=== PATIENT | female | born 1980 | race Caucasian/White ===

== ENCOUNTER 2016-05-08 13:38 | Emergency (ER) | payer OTHER ==
[2016-05-08 13:44] VITALS: BP 110/65; TEMP 98.5; BMI 28.1
[2016-05-08] MEDS ORDERED: SODIUM CHLORIDE 1,000 ML IV STA (14:45)
[2016-05-08] MEDS ORDERED: morphine CARPU-JECT 2 MG/1 ML DISP.SYRIN IVPUSH ONE (14:45)
[2016-05-08] MEDS ORDERED: morphine CARPU-JECT 2 MG/1 ML DISP.SYRIN ONE (14:48)
[2016-05-08 15:05] LABS: BASOPHIL 0.4 % (0-2.0); EOSINOPHIL 1.9 % (0-4.5); MCH 32.4 pg (25.7-33.7); MCHC 34.1 g/dl (32.0-36.0); MEAN CELL VOLUME 95.1 fl (80-96); MEAN PLT VOLUME 9.8 fl (7.5-11.1); NEUTROPHILS 61.7 % (42.8-82.8); RDW 13.5 % (11.6-15.6); WHITE BLOOD COUNT 8.4 K/mm3 (4.0-10.0)
[2016-05-08 15:06] LABS: URINE APPEARANCE CLEAR; URINE BILIRUBIN NEGATIVE (NEGATIVE); URINE BLOOD NEGATIVE (NEGATIVE); URINE COLOR STRAW; URINE GLUCOSE (UA) NEGATIVE (NEGATIVE); URINE KETONE TRACE (NEGATIVE); URINE LEUK ESTERASE NEGATIVE (NEGATIVE); URINE NITRITE NEGATIVE (NEGATIVE); URINE PROTEIN NEGATIVE (NEGATIVE); URINE UROBILINOGEN NEGATIVE E.U./dl (0.2-1.0)
--- NOTE | 2016-05-08 15:21 | PDOC ---
History of Present Illness - General Chief Complaint: Pain Stated Complaint: PELVIC PAIN Time Seen by Provider: 05/08/16 14:11 History Source: Patient Exam Limitations: No Limitations - History of Present Illness Travel History: No Initial Comments: 05/08/16 15:15 35-year-old female presents to the ED with complaints of left suprapubic pain since Tuesday but worsening in severity since yesterday. Patient states had an elective done at 6 weeks at [facility] and had went there today for further evaluation and was sent here to rule out an ectopic versus PID since patient had unprotected coitus. patient denies vaginal discharge, vaginal bleeding, dysuria, diarrhea, fever or chills. Patient also denies nausea. Timing/Duration: reports: constant, getting worse Quality: reports: moderate, cramping Abdominal Pain Onset Location: reports: suprapubic (left) Activities at Onset: denies: none Aggravating Factors: worse with: None Alleviating Factors: worse with: None Past History - Past Medical History Allergies/Adverse Reactions: Allergies Allergy/AdvReac Type Severity Reaction Status Date / Time No Known Allergies Allergy Verified 05/08/16 13:41 Home Medications: Ambulatory Orders NK [No Known Home Medication] 07/06/13 Other medical history: none - Immunization History Immunization Up to Date: Yes - Psycho/Social/Smoking Cessation Hx Anxiety: No Suicidal Ideation: No Smoking History: Never smoked Have you smoked in the past 12 months: Yes Number of Cigarettes Smoked Daily: 1 Information on smoking cessation initiated: No 'Breaking Loose' booklet given: 07/05/13 Hx Alcohol Use: No Drug/Substance Use Hx: No Substance Use Type: None Patient Lives Alone: No Lives with/in: spouse/SO Review of Systems - Review of Systems Able to Perform ROS?: Yes Constitutional: No: Symptoms Reported HEENTM: No: Symptoms Reported Respiratory: No: Symptoms reported Cardiac (ROS): No: Symptoms Reported ABD/GI: Yes: Abdominal cramping : No: Symptoms Reported Musculoskeletal: No: Symptoms Reported Integumentary: No: Symptoms Reported Neurological: No: Symptoms reported Endocrine: No: Symptoms Reported Hematologic/Lymphatic: No: Symptoms Reported *Physical Exam - Vital Signs Last Vital Signs Temp Pulse Resp BP Pulse Ox 98.5 F 84 18 110/65 100 05/08/16 13:41 05/08/16 13:41 05/08/16 13:41 05/08/16 13:41 05/08/16 13:41 - Physical Exam General Appearance: Yes: Nourished, Appropriately Dressed. No: Apparent Distress HEENT: negative: Pale Conjunctivae Neck: positive: Supple Respiratory/Chest: positive: Lungs Clear, Normal Breath Sounds. negative: Respiratory Distress, Accessory Muscle Use Cardiovascular: positive: Regular Rhythm, Regular Rate. negative: Murmur Female Pelvic Exam: positive: normal external exam (no discharge no bleeding), adnexal tenderness (left). negative: CMT, vaginal bleeding Gastrointestinal/Abdominal: positive: Normal Bowel Sounds, Soft, Tenderness ( left suprapubic) Extremity: positive: Normal Capillary Refill Integumentary: positive: Normal Color, Warm, Moist Neurologic: positive: Normal Mood/Affect, Motor Strength 06/11 ED Treatment Course - LABORATORY CBC & Chemistry Diagram: 05/08/16 14:42 05/08/16 14:42 - ADDITIONAL ORDERS Additional order review: Laboratory Results 05/08/16 14:42 Urine Color Straw Urine Appearance Clear Urine pH 6.0 Ur Specific [place] 1.010 Urine Protein Negative Urine Glucose (UA) Negative Urine Ketones Trace H Urine Blood Negative Urine Nitrite Negative Urine Bilirubin Negative Urine Urobilinogen Negative Ur Leukocyte Esterase Negative 05/08/16 14:42 RBC 3.74 MCV 95.1 MCHC 34.1 RDW 13.5 MPV 9.8 Neutrophils % 61.7 D Lymphocytes % 26.9 D Monocytes % 9.1 D Eosinophils % 1.9 D Basophils % 0.4 - Medications Given in the ED: ED Medications Discontinued Medications Generic Name Dose Route Start Last Admin Trade Name Stephanie PRN Reason Stop Dose Admin Morphine Sulfate 2 mg 05/08/16 14:45 05/08/16 14:58 Morphine Injection - IVPUSH 05/08/16 14:46 2 mg ONCE ONE Administration Medical Decision Making - Medical Decision Making 05/08/16 15:04 Patient sent here to rule out PID versus ectopic. Patient had a therapeutic done at 6 weeks in March the patient denies had no postoperative complications but now having this pain since Tuesday to the left suprapubic area radiating to the mid suprapubic region. Patient on exam did have left suprapubic pain and left adnexal pain concerning for ectopic versus cyst versus torsion. Patient ordered for labs, urine, IV fluids, and pain control. Patient will be ordered if ultrasound depending on status. 05/08/16 15:26 Laboratory Tests 05/08/16 05/08/16 14:42 14:42 WBC 8.4 D Hgb 12.1 Hct 35.6 Neutrophils % 61.7 D Urine Ketones Trace H Urine Nitrite Negative Ur Leukocyte Esterase Negative 05/08/16 16:11 Laboratory Tests 05/08/16 05/08/16 05/08/16 14:42 14:42 14:42 WBC 8.4 D Hgb 12.1 Hct 35.6 Neutrophils % 61.7 D Sodium 140 Potassium 3.5 Beta HCG, Quant < 1.0 Urine Ketones Ur Leukocyte Esterase 05/08/16 14:42 WBC Hgb Hct Neutrophils % Sodium Potassium Beta HCG, Quant Urine Ketones Trace H Ur Leukocyte Esterase Negative Transvaginal ultrasound ordered. 05/08/16 17:34 Ultrasound shows no acute findings. There is no evidence of torsion. No intraperitoneal fluid. Endometrial thickness is within normal limits. Patient states feeling better after receiving the above medication. Patient be discharged home to follow-up with her [employer]. *DC/Admit/Observation/Transfer Diagnosis at time of Disposition: Cramping of left suprapubic region - Discharge Dispostion Disposition: HOME Condition at time of disposition: Improved - Referrals Referrals: Dominic Heaton MD [Primary Care Provider] - - Patient Instructions Printed Discharge Instructions: DI for Abdominal Pain-Adult Additional Instructions: May take Motrin 600 mg for discomfort and apply heating pad to the affected area. Please follow-up with your [employer].
[2016-05-08 15:26] LABS: PLATELET COMMENT2 NO CLUMPING NOTED; PLATELET COUNT 213 K/MM3 (134-434); PLATELET ESTIMATE ADEQUATE (NORMAL)
[2016-05-08 15:40] LABS: ALBUMIN 3.7 g/dl (3.4-5.0); ALK PHOS 46 U/L (45-117); ANION GAP 10 (8-16); CALCIUM 8.5 mg/dL (8.5-10.1); CO2 28 mmol/L (21-32); CREATININE 0.6 mg/dL (0.55-1.02); GLUCOSE,RANDOM 97 mg/dL (74-106); SGOT/AST 12 U/L (15-37); SGPT/ALT 17 U/L (12-78); TOT PROT 6.7 g/dl (6.4-8.2)
[2016-05-08 18:01] VITALS: PULSE 76
== END 2016-05-08 18:21 | disposition home or self-care (01) ==
LOC: JER 13:38
PROC: 3E0337Z Introduction of Electrolytic and Water Balance Substance into Peripheral Vein, Percutaneous Approach (ICD-10-PCS; principal; 2016-05-08)
PROC: 3E033NZ Introduction of Analgesics, Hypnotics, Sedatives into Peripheral Vein, Percutaneous Approach (ICD-10-PCS; 2016-05-08)
DX: R10.32 Left lower quadrant pain (principal); Z98.890 Other specified postprocedural states
CPT/HCPCS: 36415; 76830-TC; 80053; 81003; 84702; 85025; 86850; 86900; 86901; 99283-25